=== PATIENT | female | born 1945 | race Caucasian/White ===

== ENCOUNTER 2016-12-13 02:05 | Inpatient (IN) ==
--- NOTE | 2016-12-13 02:57 | Emergency Department Note ---
I, Ayah Kaur, am scribing for, and in the presence of, Cecelia Hu DO 02: 49. I, Cecelia Hu DO, personally performed the services described in this documentation, ascribed by Ayah Kaur in my presence, and it is both accurate and complete . Arrival - Arrival Chief Complaint: Chest Pain Stated Complaint: chest pain ED Nursing Triage Note: C/C left sided chest pain under breast, squeezing/sharp in nature, shortness of breath. Went to ER 12/10/16 at [facility] ER was worked up by Dr Solo. Went to Dr Diaz 12/12 was worked up. Has appt with Dr Alonzo for chest pain. Mode of Arrival: Stretcher Limitations: No Limitations Source: Patient Time Seen by Provider: 12/13/16 02:16 - History of Present Illness HPI Narrative: Pt is a 71 y/o female that was brought to the ED via EMS with c/o left sided chest pain that began 4 days ago. Pt states the pain is like a squeezing pain. She denies N/V. She states she went to the ER 4 days ago and was worked up by Dr. Solo, he wanted to have her see the motor winder at the hospital but she declined due to weather conditions. Pt states she went back to her PCP Dr. Diaz yesterday and he did a work up, prescribed her 2 medications one for her heart and one for her blood pressure, and tried getting her in with a motor winder yesterday but was unable to. She has an appointment today at 1: 15pm with Dr. Alonzo for chest pain. Pt states she is here because she was "hurting so bad." Pt admits she is a smoker. No other complaints/pain in ED. Onset (ago): day(s) Consistency: constant Severity: mild Severity scale (1-10): 2 Quality: other Allergies/Adverse Reactions: Allergies Allergy/AdvReac Type Severity Reaction Status Date / Time Penicillins Allergy RASH Verified 12/13/16 02:22 Sulfa (Sulfonamide Allergy RASH Verified 12/13/16 02:22 Antibiotics) Home Medications: Home Medications Medication Instructions Recorded Confirmed Type Colchicine [Colcrys] 0.6 mg PO DAILY PRN 08/20/15 12/13/16 History Pantoprazole Tab [Protonix Tab] 40 mg PO DAILY #30 tablet 08/21/15 12/13/16 Rx traMADol TAB [Ultram] 50 mg PO Q6H PRN #30 tablet 08/21/15 12/13/16 Rx Amlodipine Besylate 10 mg PO DAILY 12/13/16 12/13/16 History Review of System - Review of System 12 point system: reviewed and no additional remarkable complaints except as stated - Review of System Constitutional: Absent: fever Respiratory: Absent: cough Cardiovascular: Present: chest pain (left sided chest pain) Gastrointestinal: Absent: nausea, vomiting Musculoskeletal: Absent: arm pain, back pain, leg pain, neck pain Skin: Absent: rash Neurological: Absent: headache, numbness, confusion Psychiatric: Absent: anxiety Medical,Surgical,& Family Hx - Medical History Cardio: History of: Hypertension Neurology: History of: 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) No history of: Seizures HEENT: History of: Ear Problem (hard of hearing) Rheumatology: History of;: Gout Musculoskeletal: History of: Degenerative Disk Disease (and gout), Musculoskeletal Problems (Gout) - Surgical History HEENT Surgeries: Surgical HX of: Tonsilectomy & Adenoidectomy Abdominal Surgeries: Surgical HX of: Appendectomy Reproductive Surgeries: Surgical HX of;: Section, Hysterectomy Orthopedic Surgeries: Surgical HX of;: Orthopedic Surgery (knee) - Family History Family History: Reports;: Family Cancer, Family Diabetes, Family Heart Disease - Social History Smoking Status: Current every day smoker Frequency of Alcohol Use: None Type of Drug Use: None Exam Vital Signs: Vital Signs Temperature 98.1 F 12/13/16 02:06 Pulse Rate 78 12/13/16 02:06 Respiratory Rate 20 12/13/16 03:00 Blood Pressure 167/90 12/13/16 02:06 O2 Sat by Pulse Oximetry 97 12/13/16 02:06 - General General appearance: alert, in no apparent distress - Head Head exam: Present: atraumatic, normocephalic - Eye Eye exam: Present: PERRL, EOMI - ENT ENT exam: Present: mucous membranes moist. Absent: mucous membranes dry - Neck Neck exam: Present: full ROM. Absent: tenderness - Chest Chest inspection: Present: symmetric chest wall rise. Absent: tenderness - Respiratory Respiratory exam: Present: normal lung sounds bilaterally. Absent: respiratory distress - Cardiovascular Cardiovascular exam: Present: regular rate, normal rhythm, normal heart sounds - Abdominal Exam Abdominal exam: Present: soft. Absent: tenderness - Extremities Exam Extremities exam: Present: full ROM. Absent: tenderness - Back Exam Back exam: Present: full ROM. Absent: tenderness - Neurological Exam Neurological exam: Present: alert, oriented X3, CN II-XII intact. Absent: motor sensory deficit - Psychiatric Psychiatric exam: Present: normal affect, normal mood - Skin Skin exam: Present: warm, dry Course Course Narrative: spoke with Dr Buenrostro who will admit pt Results - Labs CBC & BMP: 12/13/16 03:21 12/13/16 03:21 Lab Results: I have reviewed the patients labs Labs: Laboratory Tests 12/13/16 03:21 Neut # (Auto) 9.0 H [place] # (Auto) 1.2 H Laboratory Tests 12/13/16 03:21 Chloride 108 H BUN 28 H Creatinine 1.20 H BUN/Creatinine Ratio 23.00 H Troponin I 0.124 H Albumin 3.0 L Globulin 3.9 H Albumin/Globulin Ratio 0.7 L - EKG EKG results: interpreted by SUE, no acute changes - Diagnostic Findings Procedure: Chest x-ray: image reviewed by me (no acute process) Disposition Clinical Impression: Chest pain Case discussed with: patient Disposition: Still a Patient Condition: Stable Time of Disposition: 04:33
[2016-12-13] MEDS ORDERED: NITROGLYCERIN SL 0.4 MG TABLET SL STA (03:00)
[2016-12-13] MEDS ORDERED: ASPIRIN 325 MG TABLET PO STA ×2 (03:00→04:45)
[2016-12-13] MEDS ORDERED: ASPIRIN 325 MG TABLET ONE (03:12)
[2016-12-13] MEDS ORDERED: NITROGLYCERIN SL 0.4 MG TABLET SL ONE (03:12)
[2016-12-13 03:33] LABS: Basophils # 0.1 10*3/uL (0.0-0.2); Basophils % 0.7 % (0.0-0.8); Hematocrit 39.5 VOL% (35.7-47.0); Hemoglobin 12.8 GM/DL (12.0-16.0); Immature Granulocytes % 0.4 %; Immature Granulocytes Absolute 0.05 #; Lymphocytes # 3.3 10*3/uL (1.4-4.0); Lymphocytes % 24.4 % (21.3-54.2); Mean Corpuscular HGB Conc 32.4 GM/DL (32-36); Mean Corpuscular Hemoglobin 32 PG (27-34); Mean Corpuscular Volume 99.2 FL (87-102); Mean Platelet Volume 9.8 FL (9.6-12.0); Monocytes # 1.2 10*3/uL (0.11-0.8); Monocytes % 8.4 % (1.7-12.7); Neutrophils % 66.1 % (38.7-73.9); Platelet Count 273 10*3/uL (130-400); Red Blood Count 3.98 10*6/uL (3.8-5.5); Red Cell Distribution Width 13.1 % (9.3-17.3); White Blood Count 13.7 10*3/uL (4.5-13.71)
[2016-12-13 03:44] LABS: INR 0.9; PT Patient Result 9.7 SECS; Partial Thromboplastin Time 30.6 SECS (0-40)
[2016-12-13 04:11] LABS: Alanine Aminotransferase 13 U/L (13-56); Alkaline Phosphatase 85 U/L (45-117); Aspartate Amino Transferase 11 U/L (0-37); Blood Urea Nitrogen 28 MG/DL (7-18); Calcium 8.7 MG/DL (8.5-10.1); Glucose 92 MG/DL (74-106); Osmolality,Calculated 291.8 MOS/KG (273-304); Sodium 144 MMOL/L (136-145); Total Protein 6.9 G/DL (6.4-8.3)
[2016-12-13 04:14] LABS: Troponin I Only 0.124 NG/ML (0.00-0.045)
[2016-12-13] MEDS ORDERED: METOPROLOL TARTRATE 5 MG/5 ML VIAL IV STA (04:24)
[2016-12-13] MEDS ORDERED: METOPROLOL TARTRATE 5 MG/5 ML VIAL IV ONE (04:25)
[2016-12-13] MEDS ORDERED: MAGNESIUM SULF RIDER 4 GM in PREMIX 1 EACH IV PRN (04:45)
[2016-12-13] MEDS ORDERED: MAGNESIUM SULF RIDER 2 GM in PREMIX 1 EACH IV PRN (04:45)
[2016-12-13] MEDS ORDERED: ONDANSETRON 4 MG/2 ML VIAL ONE (04:59)
[2016-12-13] MEDS ORDERED: MORPHINE 2 MG/1 ML SYRINGE ONE (04:59)
[2016-12-13] MEDS ORDERED: MORPHINE 2 MG/1 ML SYRINGE IV ONE (05:03)
[2016-12-13] MEDS ORDERED: ONDANSETRON 4 MG/2 ML VIAL IV ONE (05:03)
[2016-12-13] MEDS ORDERED: KETOROLAC 30 MG/1 ML VIAL ONE (05:07)
[2016-12-13] MEDS ORDERED: KETOROLAC 30 MG/1 ML VIAL IV ONE ×2 (05:11→06:33)
--- NOTE | 2016-12-13 06:47 | XRay Report ---
Portable chest. Indication: Chest pain. Comparison: August 20, 2015. The heart is enlarged. There is uncoiling of the thoracic aorta which often indicates chronic hypertension. The pulmonary vasculature is normal. There is mild atelectasis at the left lung base. No consolidation, pneumothorax, or pleural effusion. Calcified plaque is seen over both carotids. Degenerative changes are noted within the spinal column and shoulders. Impression: Cardiomegaly. Left basilar atelectasis. PROCEDURE INTERPRETED AT [facility] DEPARTMENT OF RADIOLOGY Final Report Signed by: Dr. Yoli Whaley
[2016-12-13] MEDS: SODIUM CHLORIDE 0.9% 1,000 ML IV SCH ×3 (07:10→21:28)
[2016-12-13 07:25] LABS: Troponin I Only 0.144 NG/ML (0.00-0.045)
--- NOTE | 2016-12-13 07:48 | EKG Report ---
Stationary ECG Study [facility] Test Date: 12/13/2016 7:46:58 AM Pat Name: DIEGO JACOME Department: Room: 275 Gender: F Back Hand: ALBERTO : 1945 Requested by: Cecelia Hu Order Number: [id number] Sage MD: DICKSON WILLIS Intervals [place] Rate: 66 P: 59 ME: 165 QRS: 10 QRSD: 84 T: 48 QT: 417 QTc: 430 Interpretive Statements SINUS RHYTHM LEFT VENTRICULAR HYPERTROPHY AND ST-T CHANGE Electronically Signed On 12-15-16 09:36:26 ASSOCIATE PROFESSOR OF LIBRARY MEDIA by DICKSON WILLIS [email or web address]
--- NOTE | 2016-12-13 07:53 | EKG Report ---
Stationary ECG Study [facility] ER Test Date: 12/13/2016 2:12:20 AM Pat Name: DIEGO JACOME Department: Room: 275 Gender: F Landscape Contractor: : 1945 Requested by: Cecelia Hu Order Number: [id number] Sage MD: DICKSON WILLIS Intervals [place] Rate: 85 P: 36 MD: 149 QRS: -11 QRSD: 85 T: 134 QT: 364 QTc: 407 Interpretive Statements SINUS RHYTHM LEFT VENTRICULAR HYPERTROPHY AND ST-T CHANGE Electronically Signed On 12-15-16 09:34:22 BUSINESS FUNCTIONAL ANALYST by DICKSON WILLIS [email or web address]
[2016-12-13 08:35] LABS: Troponin I Only 0.139 NG/ML (0.00-0.045)
--- NOTE | 2016-12-13 10:56 | CT Report ---
EXAM: CT chest PE study DATE: December 13, 2016 COMPARISON: None REASON: Shortness of breath, painful inspiration TECHNIQUE: Axial images of the chest were obtained after administration of 80 cc of Omnipaque 350 intravenous contrast. Coronal and sagittal reformatted images were also acquired. The study was performed per pulmonary embolism protocol. Total DLP was 214.9 mGy*cm. FINDINGS: Pulmonary arteries: Evaluation of the segmental and subsegmental pulmonary arteries is difficult in some regions, especially at the right lower lobe where there is motion artifact. However, no convincing pulmonary embolism is identified. Vascular/heart: The descending thoracic aorta is upper normal in size, measuring 3.3 cm in diameter. Evaluation for dissection at the thoracic aorta is limited by poor opacification, but no obvious dissection is seen. There is moderate scattered calcified plaque at the arteries, including at the coronary arteries. There is cardiomegaly, but no pericardial effusion is seen. Lymph nodes: Calcified mediastinal and hilar lymph nodes are present, but no suspicious adenopathy is seen at the chest. Other mediastinum/lower neck: There is a 1.9 cm hypodensity at the right thyroid lobe, likely representing a nodule. Chest wall: Unremarkable. Lungs: There are a few calcified granulomas within the left lung and minimal scattered atelectasis within both lungs. There is also minimal emphysema. No pneumothorax or pleural effusion is identified. A 1 cm groundglass opacity is seen within the posterior aspect of the right lower lobe on image 68. This could represent atelectasis or a minimal small airway infectious/inflammatory process. However, followup is recommended to confirm benignity. There is also nonspecific 0.5 cm noncalcified nodule within the lower posterior aspect of the right upper lobe on image 50. This could be followed at the same time as the right lower lobe opacity. Bones: There is multilevel mild to moderate degenerative change at the thoracic spine and upper lumbar spine. There is also mild scoliosis. No acute osseous process is seen. Upper abdomen: There is a 2.7 cm left adrenal nodule and 1.8 cm right adrenal nodule. They both demonstrated -30 Hounsfield units and are most consistent with adrenal adenomas. No acute process is seen within the upper abdomen. IMPRESSION: 1. Evaluation of the pulmonary arteries at the right lower lobe is limited by motion artifact. However, no convincing pulmonary emboli are identified. 2. There is a 1 cm groundglass opacity within the right lower lobe, which could represent atelectasis or a small airway infectious/inflammatory process. There is also a nonspecific 0.5 cm noncalcified nodule within the lower posterior aspect of the right upper lobe. Followup is recommended to confirm benignity. 3. Minimal scattered atelectasis within both lungs and minimal emphysema. 4. Cardiomegaly. 5. Bilateral adrenal nodules, measuring up to 2.7 cm on the left. They are most consistent with adrenal adenomas. 6. Nonspecific right thyroid nodule. Further evaluation could be performed with ultrasound. PROCEDURE INTERPRETED AT [facility] DEPARTMENT OF RADIOLOGY Final Report Signed by: Dr. Yon Goins
[2016-12-13] MEDS: ALBUTEROL/IPRATROPIUM 3 ML NEB RESP TX SCH ×3 (11:02→20:23)
[2016-12-13] MEDS ORDERED: REGADENOSON 0.4 MG/5 ML SYRINGE IV ONE (11:50)
[2016-12-13] MEDS: ACETAMINOPHEN 500 MG TABLET PO PRN (12:49)
[2016-12-13 13:23] LABS: Troponin I Only 0.132 NG/ML (0.00-0.045)
--- NOTE | 2016-12-13 13:40 | XRay Report ---
Referring Physician: Kimberly Livingston Exam: XR bilateral rib x-rays with PA chest view Date: December 13, 2016 at 9:52 AM Reason: Rib/chest wall pain, anterior/posterior pain Comparison: Chest one view portable December 13, 2016 Findings: The cardiac silhouette is again enlarged, and the thoracic aorta is tortuous with scattered calcified plaque. There are a few calcified mediastinal and hilar lymph nodes. No focal consolidation, pneumothorax or pleural effusion is identified. There is multilevel degenerative change at the spine as well as mild thoracolumbar scoliosis. Surgical clips are noted at the lower neck. No acute osseous process is identified. Specifically, no acute rib fracture is seen. Impression: 1. Cardiomegaly. 2. No acute rib fracture is identified. If there is a high clinical concern for a rib fracture, further evaluation could be performed with a bone scan. PROCEDURE INTERPRETED AT [facility] DEPARTMENT OF RADIOLOGY Final Report Signed by: Dr. Yon Goins
--- NOTE | 2016-12-13 14:02 | Ultrasound Report ---
Referring physician: Kimberly Livingston Exam: Carotid ultrasound Date: December 13, 2016 Comparison: None Reason: Bruit Technique: Duplex scan of the carotid arteries performed using B-Mode/grayscale imaging and Doppler spectral analysis and color flow. Ultrasound images were captured and stored. Findings: There is partially calcified plaque at the common carotid arteries, carotid bifurcations, proximal cervical ICAs and external carotid arteries bilaterally. This is especially prominent at the proximal right ICA. The right ICA measures 0.23 cm in diameter, and the left ICA measures 0.43 cm in diameter. The peak systolic velocities are as follows: Right CCA: 88 cm/s Right proximal ICA: 145 cm/s Right distal ICA: 174 cm/s Right ECA: 135 cm/s Left CCA: 58 cm/s Left proximal ICA: 98 cm/s Left distal ICA: 74 cm/s Left ECA: 105 cm/s The peak systolic ICA/CCA velocity ratios are as follows: 2.0 on the right and 1.7 on the left. Antegrade flow is present within both vertebral arteries. Impression: 1. 50-69% stenosis of the proximal right ICA. 2. Less than 50% stenosis of the left cervical ICA. 3. The Society of Radiologists in Ultrasound consensus conference criteria was used. The Ultrasound images were captured and stored. PROCEDURE INTERPRETED AT [facility] DEPARTMENT OF RADIOLOGY Final Report Signed by: Dr. Yon Goins
[2016-12-13] MEDS ORDERED: COLCHICINE 0.6 MG TABLET PO PRN (16:01)
[2016-12-13] MEDS ORDERED: traMADol 50 MG TABLET PO PRN (16:01)
[2016-12-13] MEDS ORDERED: KETOROLAC 30 MG/1 ML VIAL IV PRN (16:02)
--- NOTE | 2016-12-13 16:50 | Nuclear Medicine Report ---
NUCLEAR STRESS TEST DATE: 12/13/2016 REFERRING PHYSICIAN: Kimberly Livingston MD INTERPRETING PHYSICIAN: Kimberly Livingston MD INDICATION: A 71-year-old female with atypical chest discomfort, intermediate risk of coronary jayy ry disease. PROCEDURE: The patient underwent Lexiscan Cardiolite per protocol. The patient received 10 mCi Anderson hnetium-99 for rest imaging. Subsequently, the patient was initially exercised per Cordell protocol a nd achieved 2.4 METS on the treadmill. Due to gait instability and inability to achieve target hear t rate, she was transitioned to Lexiscan protocol. She received 0.4 mg of Lexiscan. This was follo wed by 30 mCi Technetium-99 for stress imaging. EKG interpretation is supervised and interpreted by practitioner Raciel, and reviewed by me. The jonathan caal did not have any chest pain, ST changes or arrhythmia. SPECT images were obtained in the short axis, horizontal, and vertical long axes with gating. Eject ion fraction is 58%. End-diastolic volume 105 mL, end-systolic volume 44 mL, stroke volume is 60 mL . Overall thickening and wall motion is within normal limits. At rest, there was a very small exte nt, moderate intensity perfusion defect at the apex. With stress imaging, the preexisting apical de fect is unchanged and no new radiotracer defects develop. Diaphragmatic attenuation is noted and co rresponds with the apical defect. IMPRESSION: 1. POOR EXERCISE TOLERANCE. 2. NORMAL LEFT VENTRICULAR SYSTOLIC FUNCTION. 3. SMALL EXTENT, MODERATE INTENSITY FIXED APICAL PERFUSION DEFECT THAT IS THOUGHT TO BE SECONDARY T O DIAPHRAGMATIC ATTENUATION OR COULD REPRESENT A VERY SMALL AREA OF PRIOR MYOCARDIAL INFARCTION. CLINICAL CORRELATION IS RECOMMENDED. 4. NO GROSS NUCLEAR EVIDENCE OF REVERSIBLE ISCHEMIA. Procedure performed and interpreted at [facility] Department of Radiology.
--- NOTE | 2016-12-13 20:16 | Cardiology History & Physical ---
Raul Larose Lauren, RN, am scribing for, and in the presence of, Kimberly Livingston MD 20:15. Assessment and Plan - Time spent with patient Time spent with patient: Greater than 30 minutes (1) Chest pain Status: Acute Assessment and plan: In general, she has a variable amount of chest pains. Some of this has a pleuritic component, some has a reproducible component. There is also epigastric discomfort, and potentially an exertional component. We will obtain an echocardiogram today and set her up from nuclear stress testing. This could be cardiac pain but we will also check rib series xrays, D-Dimer, and CT chest PE protocol. Current Visit: Yes (2) Left-sided chest wall pain Status: Acute Assessment and plan: She is very tender to palpation along her left-sided chest wall beneath the left breast extending around her posterior thoracic region. She also has painful inspiration. We will obtain a rib series x-ray, check a d-dimer, and obtain a CT of the chest with PE protocol. Current Visit: Yes (3) Elevated troponin Status: Acute Assessment and plan: 3 sets of troponins have been obtained. First troponin 0.124, second troponin 0.144, third troponin 0.139. We will schedule her for a nuclear stress test later on today to evaluate for cardiac disease. Current Visit: No (4) Hypertension Status: Acute Assessment and plan: Elevated on admission but presently well controlled. Continue with current medications. Current Visit: Yes (5) Decreased hearing of both ears Status: Acute Assessment and plan: Reports onset September 2016 when she awoke from sleep and could not here. Upon arrival to the emergency room her blood pressure was 260/140. Since that time she has had no hearing in her right ear and only 30% hearing in her left ear. Current Visit: Yes (6) Tobacco use Status: Acute Assessment and plan: She has smoked half a pack per day since the 1960s. Current Visit: Yes (7) Elevated serum creatinine Status: Acute Assessment and plan: Currently 1.2. Current Visit: No History of Present Illness Chief complaint: chest pain History of present illness: Ms. Schultz is a 71 year old female who has never seen a managed care analyst before. She did have an appointment to see Dr. Alonzo at [facility] today at 1:15 PM. She has a history of hypertension, gout, degenerative disc disease, prior GI bleed in August 2015, hard of hearing. She has risk factors significant for: Tobacco use, sedentary lifestyle, age, hypertension. According to her records she has a prior history of GI bleed with anemia related to NSAIDs back in August 2015. At that time she did have an elevated troponin. She is occurring every day smoker and has smoked about a half a pack a day since the 1960s. She reports having been in her usual state of health until last week when she began having twinges of chest pain. She reports these only last a few seconds. Monday she presented to the [facility] emergency room complaining of unbearable right sided chest pain with numbness in her right hand. She reports this pain was constant and was mildly improved with a shot of pain medication. She tells me that the emergency room physician wanted to transfer her to our facility at that time for evaluation by managed care analyst but she refused due to the bad weather conditions. Monday morning she went to see her primary care physician Dr. Diaz. At this time the pain has been moving into her left chest. She reports the pain was underneath her left breast and mid upper abdomen. She reports this pain is sharp and squeezing quality with some associated diaphoresis. She tells me now that this pain feels like a deep soreness. She does have some considerable tenderness to palpation beneath her left breast along her rib cage extending around to her back. She reports this is not exactly the same pain that she has been having. She denies associated shortness of breath but does report pain upon inspiration. She denies any associated nausea, vomiting, dizziness, lightheadedness, syncope. She reports she generally does not have any dyspnea on exertion or chest discomfort on exertion. She does have some significant hearing loss. She tells me she had been off of her blood pressure medications back in September when she woke up one morning and could not hear. She reports presenting to the emergency room and her blood pressure was 260/140. She reports she has had some residual hearing loss ever since and cannot hear anything out of her right ear and only has about 30% of her hearing in her left ear. Currently her H&H is stable. Creatinine is 1.20. First troponin was 0.124, second troponin 0.144, third troponin 0.139. EKG shows sinus rhythm with minimal ST depression in lead [address] changes. I do hear a left- sided carotid bruit. We will check bilateral carotid ultrasound. We will also obtain rib series x-rays, d-dimer, and CT of the chest PE protocol. We will obtain an echocardiogram and schedule her for a nuclear stress test sometime today. Home Medications Medication Instructions Recorded Confirmed Type Colchicine [Colcrys] 0.6 mg PO DAILY PRN 08/20/15 12/13/16 History Pantoprazole Tab [Protonix Tab] 40 mg PO DAILY #30 tablet 08/21/15 12/13/16 Rx traMADol TAB [Ultram] 50 mg PO Q6H PRN #30 tablet 08/21/15 12/13/16 Rx Amlodipine Besylate 10 mg PO DAILY 12/13/16 12/13/16 History Allergies Allergy/AdvReac Type Severity Reaction Status Date / Time morphine Allergy Hallucinati Verified 12/13/16 05:12 ng Penicillins Allergy RASH Verified 12/13/16 02:22 Sulfa (Sulfonamide Allergy RASH Verified 12/13/16 02:22 Antibiotics) - Constitutional Constitutional: Present: excessive sweating. Absent: anorexia, chills, daytime sleepiness, fatigue, fever(s), frequent falls, headache(s), increased appetite, lethargy, malaise, night sweats, stops breathing during sleep, weakness, weight gain, weight loss - EENT Eyes: Absent: blurry vision, diplopia, loss of vision Ears: Present: decreased hearing. Absent: ear discharge, ear pain Nose, mouth and throat: Absent: dysphagia, epistaxis, headache(s), hoarseness, lip swelling, nasal congestion, neck mass, neck pain, sinus pressure, sore throat, throat swelling, tongue swelling, vertigo - Cardiovascular Cardiovascular: Present: as per HPI, chest pain at rest, radiating jaw, neck or arm pain (right arm pain). Absent: chest pain with activity, claudication, diaphoresis, dyspnea, dyspnea on exertion, edema, lightheadedness, orthopnea, palpitations, PND - Respiratory Respiratory: Present: as per HPI, pain on inspiration. Absent: cough, dyspnea, hemoptysis, dyspnea on exertion, snoring - Gastrointestinal Gastrointestinal: Present: abdominal pain (mid uppper abdomen). Absent: bloating, change in bowel habits, constipation, cramping, diarrhea, dysphagia, heartburn, hematemesis, hematochezia, melena, nausea, vomiting - Genitourinary Genitourinary: Absent: difficulty urinating, dysuria, flank pain, urinary frequency, urinary hesitancy, urinary incontinence - Musculoskeletal Musculoskeletal: Present: back pain (left sided thoracic back pain). Absent: arthralgias, joint swelling, limited range of motion, muscle cramps, muscle weakness, myalgias - Neurological Neurological: Present: numbness (in right arm monday). Absent: abnormal gait , abnormal speech, behavioral changes, confusion, convulsions, disequilibrium, dizziness, focal weakness, frequent falls, headache(s), memory loss, paresthesias, radicular pain, syncope, tremor(s) - Psychiatric Psychiatric: Absent: anxiety, confusion, depression, difficulty concentrating, memory loss, panic attacks - Endocrine Endocrine: Absent: cold intolerance, fatigue, heat intolerance, polydipsia, polyphagia - Hematologic/Lymphatic Hematologic/Lymphatic: Absent: easy bleeding, easy bruising, lymphadenopathy Medical,Surgical,& Family Hx - Medical History Cardio: History of: Hypertension Neurology: History of: 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) No history of: Seizures HEENT: History of: Ear Problem (hard of hearing) Rheumatology: History of;: Gout Musculoskeletal: History of: Degenerative Disk Disease (and gout), Musculoskeletal Problems (Gout) - Surgical History HEENT Surgeries: Surgical HX of: Tonsilectomy & Adenoidectomy Abdominal Surgeries: Surgical HX of: Appendectomy Reproductive Surgeries: Surgical HX of;: Section, Hysterectomy Orthopedic Surgeries: Surgical HX of;: Orthopedic Surgery (knee) - Family History Family History: Reports;: Family Cancer, Family Diabetes, Family Heart Disease - Social History Smoking Status: Current every day smoker Frequency of Alcohol Use: None Type of Drug Use: None Cardiology Physical Exam - Constitutional Vitals: Vital Signs Temp Pulse Resp BP Pulse Ox 98 F 66 20 132/68 92 L 12/13/16 08:00 12/13/16 08:00 12/13/16 09:18 12/13/16 08:00 12/13/16 08:00 Intake and Output 12/12/16 12/13/16 12/13/16 22:59 06:59 14:59 Other: Voiding Method Toilet # Voids 1 Weight 139 lb 9 oz General appearance: normal weight, no acute distress - Head Head exam: Present: normal inspection, normocephalic, atraumatic - Eye Eye exam: Absent: conjunctival injection, periorbital swelling, scleral icterus , laceration to eyelids Pupils: Present: GENA. Absent: dilated - ENT ENT exam: Present: normal exam, normal external ear exam - Neck Neck exam: Present: normal inspection. Absent: tenderness - Respiratory Respiratory exam: Present: chest wall tenderness, rhonchi, wheezes (scattered). Absent: accessory muscle use - Cardiovascular Cardiovascular exam: Present: carotid bruit (left sided), regular rate and rhythm. Absent: diastolic murmur, systolic murmur - GI/Abdominal GI/Abdominal exam: Present: normal bowel sounds, tenderness (to mid upper abdomen and left upper quadrant), soft. Absent: distended, mass - Extremities Exam Extremities exam: Present: normal inspection, calf tenderness, other (2+ PT pulses bilaterally). Absent: edema - Back Exam Back exam: Present: normal inspection, other (tenderness to posterior thorax left side). Absent: vertebral tenderness - Neurological Exam Neurological exam: Present: alert, oriented X3, other (grossly intact, no resting or essential tremor.) - Psychiatric Psychiatric exam: Present: normal affect, normal mood - Skin Skin exam: Present: normal color, warm, dry. Absent: cyanosis Result/EKG - Labs CBC & BMP: 12/13/16 03:21 12/13/16 03:21 Lab Results: I have reviewed the past 24 hour labs Labs: Laboratory Results - last 24 hr 12/13/16 12/13/16 06:35 07:57 Total Creatine Kinase 82 80 CK-MB (CK-2) 1.8 1.5 Troponin I 0.144 H 0.139 H - Diagnostic Findings Procedure: Chest x-ray: report reviewed by me - EKG EKG results: interpreted by me, sinus rhythm (with mild ST depression in lead [address] changes.) I, Kimberly Livingston MD, personally performed the services described in this documentation, ascribed by Sadaf Carter RN in my presence, and it is both accurate and complete .
--- NOTE | 2016-12-13 21:24 | ECHO Report ---
Tara Schultz Exam Date: 12/13/2016 10:46 Referring Physician: Technologist: Genie Millan RDCS Age: 71 Ht (in): Wt (lb): Gender: F Exam Location: [facility] Echo Indications: Chest pain, unspecified, Essential (primary) hypertension, Nicotine dependence, unspecified, uncomplicated BP: / HR: Rhythm: Sinus Technical Quality: Good IMPRESSIONS Normal LV systolic function, ejection fraction 55%. Grade 1/4 diastolic dysfunction (impaired relaxation). Mild biatrial enlargement. Moderate concentric left ventricular hypertrophy. Mild mitral and tricuspid regurgitation. Aortic sclerosis without stenosis. Mild pulmonary hypertension, pulmonary artery pressure estimated at 43 mmHg. MEASUREMENTS (Male / Female) Normal Values 2D ECHO LV Diastolic Diameter PLAX 4.4 cm 4.2 - 5.9 / 3.9 - 5.3 cm LV Systolic Diameter PLAX 2.8 cm LV Fractional Shortening PLAX 36.4 % IVS Diastolic Thickness 1.8 cm 0.6 - 1.0 / 0.6 - 0.9 cm LVPW Diastolic Thickness 1.9 cm 0.6 - 1.0 / 0.6 - 0.9 cm RV Internal Dim ED PLAX 2.5 cm Aortic Root Diameter 2.9 cm LA Systolic Diameter LX 4.1 cm 3.0 - 4.0 / 2.7 - 3.8 cm DOPPLER TR Peak Velocity 289.0 cm/s TR Peak Gradient 33.4 mmHg FINDINGS Left Ventricle Normal left ventricular cavity size. Moderate left ventricular hypertrophy. Left ventricular ejection fraction is estimated at 55 %. Right Ventricle The right ventricle is normal in size and function. Right Atrium Mildly increased right atrial size. Left Atrium Mildly increased left atrial size. Mitral Valve Mildly thickened mitral valve with mild mitral regurgitation. Aortic Valve Aortic valve sclerosis without stenosis or regurgitation. Tricuspid Valve Morphologically normal tricuspid valve. Trace to mild tricuspid valve regurgitation. Tricuspid regurgitation velocities suggest a PAP of 43 mmHg. Pulmonic Valve Morphologically normal pulmonic valve without significant stenosis. There is no pulmonic regurgitation. Pericardium Normal pericardium without effusion. Aorta Normal ascending aorta dimension. Kimberly Livingston MD (Electronically Signed) Final Date: 13 December 2016 21:23
[2016-12-14] MEDS: ACETAMINOPHEN 500 MG TABLET PO PRN (01:02)
[2016-12-14] MEDS: ALBUTEROL/IPRATROPIUM 3 ML NEB RESP TX SCH ×2 (08:24→11:23)
--- NOTE | 2016-12-14 08:36 | EKG Report ---
Stationary ECG Study [facility] Test Date: 12/14/2016 8:36:08 AM Pat Name: DIEGO JACOME Department: Room: 275 Gender: F Master Craftsman: ALEBRTO : 1945 Requested by: Cecelia Hu Order Number: [id number] Sage MD: DICKSON WILLIS Intervals [place] Rate: 72 P: 72 AK: 158 QRS: 29 QRSD: 84 T: 133 QT: 424 QTc: 448 Interpretive Statements SINUS RHYTHM WITH SINUS ARRHYTHMIA LEFT VENTRICULAR HYPERTROPHY AND ST-T CHANGE Electronically Signed On 12-15-16 09:50:06 EDUCATION LIAISON by DICKSON WILLIS [email or web address]
[2016-12-14] MEDS ORDERED: amLODIPine 10 MG TABLET PO SCH (09:00)
[2016-12-14] MEDS ORDERED: PANTOPRAZOLE 40 MG TABLET PO SCH (09:00)
--- NOTE | 2016-12-14 12:13 | Discharge Summary ---
Hospital Course - Hospital Course Hospital Course: Ms. Schultz is a 71 year old female who has never seen a sail maker before. She has risk factors significant for: tobacco use, sedentary lifestyle , age, hypertension. History of prior GI bleed in August 2015 due to NSAID use. Patient presented to the emergency department for complaints of chest pain. Her cardiac biomarkers were noted to be 0.124 to 0. 144. EKG revealed nonspecific ST changes. Patient underwent elective stress test which revealed no evidence of reversible ischemia. It is felt that her pain is musculoskeletal in nature. She did have a carotid bruit and an ultrasound was performed which revealed 50- 69% right internal carotid artery stenosis, left internal carotid artery stenosis less than 50%. Echocardiogram revealed EF 55% without significant valvular abnormality. CT of the chest revealed no PE. Of note was a 1 cm groundglass opacity within the right lower lobe which could represent atelectasis or small infectious inflammatory process. There is also nonspecific 0.5 cm noncalcified nodule with the lower posterior aspect of the right upper lobe. We will have her follow-up with her primary care provider, Dr. Diaz in [place], for follow-up CT to confirm benignity. (See report for further information). Thyroid nodule noted on CT may need further work-up and we will defer this to Dr. Diaz's discretion. At discharge, patient will resume her preadmission medications. She is also being given a consultation with Dr. Speedy Lopes, Pain Specialist, to treat her non-cardiac chest pain. She will be given a biref trial of Celebrex for her pain as she has history of GI Bleed due to NSAID use. She is also being given Oliver and Prilosec. F/U Dr. Livingston in one month. (Handwritten Rx given as there is no pharmacy listed in computer and therefor unable to transmit electronically.) - Time spent with patient Time with patient DS: Less than 30 minutes Diagnosis - Discharge Diagnosis (1) Elevated troponin Status: Resolved (2) Chest pain Status: Chronic (3) Hypertension Status: Chronic (4) Tobacco use Status: Chronic (5) Left-sided chest wall pain Status: Chronic Discharge Plan - Discharge Data Disposition: Disch To Home/Self Care Condition at Discharge: Stable Discharge Diet: advance to your usual diet Activity: resume usual activities as tolerated Hygiene: no restrictions Weight Bearing at Discharge: full weight bearing Driving: no restrictions Contact your physician if you experience:: fever over 101, Difficulty voiding, Redness or swelling, Nausea/Vomiting, Shortness of breath, Bleeding, pain uncontrolled by pain medications - Discharge Medications New Celecoxib [Celebrex] 200 mg PO BID #10 capsule HYDROcodone/ACETAMIN 7.5-325 [Oliver 7.5-325] 1 tablet PO Q4H #30 tablet Continue Colchicine [Colcrys] 0.6 mg PO DAILY PRN PRN Reason: Gout Pantoprazole Tab [Protonix Tab] 40 mg PO DAILY #30 tablet traMADol TAB [Ultram] 50 mg PO Q6H PRN #30 tablet PRN Reason: Pain Amlodipine Besylate 10 mg PO DAILY - Follow Up or Referral Follow Up: Kimberly Livingston MD [Physician] - 1 Month Han Diaz MD [Physician] - 1 Week (Please send copy of Chest CT to appointment) Will Lopes M.D. [PROVISIONAL] - (1-2 weeks RE: non-cardiac chest pain ) - Forms/Instructions Exam - Constitutional Vitals: Period Temp Pulse Resp BP Sys/Johnson Pulse Ox Last 24 Hr 96.6 F-98.5 F 60-92 16-20 125-185/70-78 91-99 Exam: General: Appears well with no apparent distress. Pleasant and cooperative. Appears comfortable. HEENT: PERRL, normocephalic, atraumatic. Mucous membranes moist. No jaundice noted. Conjunctiva moist and clear, sclerae anicteric Neck: No JVD/HJR, no thyromegaly or lymphadenopathy noted. Right carotid bruit. Cardiac: Regular rate and rhythm. No murmur rub or gallop. Lungs: Clear to auscultation without accessory muscle use to assist the respiratory pattern. Not requiring oxygen. Abdomen: Soft, bowel sounds normoactive. Nontender and nondistended. No abdominal bruit or thrill noted. No masses noted. Musculoskeletal: No fluid collection. Decreased range of motion is noted. Extremities: No clubbing, cyanosis noted. No edema noted. Upper extremity pulses 2+. Lower extremity pulses 2+. Capillary refill less than 3 seconds. Skin: No unusual lesions or rashes. No skin breakdown appreciated. Neuro: Awake, alert and oriented 3. Moves all extremities well without hemiparesis or paralysis. No essential tremor is appreciated. Discharge Results Labs on day of discharge: Labs from last 24 hours 12/13/16 12:31 Total Creatine Kinase 91 CK-MB (CK-2) 1.9 Troponin I 0.132 H DS: Provider Date of admission: 12/13/16 04:45 Primary care physician: Manjeet Cid Attending physician on admission: Kimberly Livingston, Discharging clinician: Jodie Schrader NP Expected date of discharge: 12/14/16
[2016-12-14 16:33] VITALS: BP 183/77
== END 2016-12-14 17:20 | disposition home or self-care (01) | DRG 313 ==
LOC: EDUNIT# → EDBD → N.ED 02:05 → N.EDINP 04:45 → N.TELES 05:00
PROVIDERS: ADMIT Internal Medicine Cardiovascular Disease; ATTEND Internal Medicine Cardiovascular Disease

== ENCOUNTER 2018-10-23 23:29 | Observation (INO) ==
[2018-10-24 00:06] LABS: Basophils # 0.1 10*3/uL (0.0-0.2); Basophils % 0.4 % (0.0-0.8); Hemoglobin 10.9 GM/DL (12.0-16.0); Immature Granulocytes % 0.8 %; Immature Granulocytes Absolute 0.13 #; Lymphocytes # 1.4 10*3/uL (1.4-4.0); Lymphocytes % 8.6 % (21.3-54.2); Mean Corpuscular HGB Conc 32.1 GM/DL (32-36); Mean Corpuscular Hemoglobin 31 PG (27-34); Mean Corpuscular Volume 95.2 FL (87-102); Mean Platelet Volume 9.9 FL (9.6-12.0); Monocytes # 1.7 10*3/uL (0.11-0.8); Neutrophils # 13.4 10*3/uL (1.4-7.4); Neutrophils % 80.2 % (38.7-73.9); Platelet Count 307 T/CUMM (130-400); Red Blood Count 3.57 MC/CUMM (3.8-5.5); Red Cell Distribution Width 15.6 % (9.3-17.3); White Blood Count 16.7 T/CUMM (4-12)
[2018-10-24] MEDS ORDERED: KETOROLAC 30 MG/1 ML VIAL IV STA (00:33)
[2018-10-24] MEDS ORDERED: ONDANSETRON 4 MG/2 ML VIAL IV PRN (01:29)
[2018-10-24] MEDS ORDERED: ACETAMINOPHEN 325 MG TABLET PO PRN (01:29)
[2018-10-24] MEDS ORDERED: predniSONE 20 MG TABLET ONE (01:32)
[2018-10-24 01:41] LABS: Albumin 2.6 G/DL (3.4-5.0); Bilirubin,Total 0.7 MG/DL (0.2-1.0); Calcium 8.3 MG/DL (8.5-10.1); Osmolality,Calculated 285.4 MOS/KG (273-304); Potassium 3.9 MMOL/L (3.5-5.1)
[2018-10-24] MEDS ORDERED: predniSONE 20 MG TABLET PO STA (01:42)
[2018-10-24 01:49] LABS: Apearance,Urine CLOUDY (Clear); Bilirubin,Urine Negative (Negative); Blood, Urine Small mg/dL (Negative); Glucose,Urine (UA) Negative (Negative); Ketones,Urine Negative (Negative); Mucus,Urine Occasional /LPF (Occasional); Nitrite,Urine Negative (Negative); Protein,Urine 30 MG/DL; RBC,Urine 21 /HPF (0-4); Squamous Epithelial Cell,Urine Occasional /HPF (0-10); Urine Color Yellow (Yellow); Urine Specific Gravity 1.017 (1.001-1.035); Urine Urobilinogen < 2.0 EU/DL (0.2-1.0); WBC,Urine 2 /HPF (0-6)
[2018-10-24] MEDS ORDERED: HYDROmorphone 2 MG/1 ML VIAL IV PRN (01:51)
[2018-10-24] MEDS: CLINDAMYCIN INJ 600 MG in PREMIX 1 EACH IV SCH ×4 (03:22→18:13)
[2018-10-24] MEDS: SODIUM CHLORIDE 0.9% 1,000 ML IV SCH ×3 (03:22→21:34)
[2018-10-24 07:06] LABS: Basophils % 0.2 % (0.0-0.8); Hematocrit 37.5 VOL% (35.7-47.0); Hemoglobin 11.8 GM/DL (12.0-16.0); Immature Granulocytes % 0.9 %; Immature Granulocytes Absolute 0.15 #; Lymphocytes # 0.6 10*3/uL (1.4-4.0); Lymphocytes % 3.4 % (21.3-54.2); Mean Corpuscular HGB Conc 31.5 GM/DL (32-36); Mean Corpuscular Hemoglobin 30 PG (27-34); Mean Corpuscular Volume 95.9 FL (87-102); Mean Platelet Volume 9.7 FL (9.6-12.0); Monocytes % 5.8 % (1.7-12.7); Neutrophils # 14.8 10*3/uL (1.4-7.4); Neutrophils % 89.7 % (38.7-73.9); Platelet Count 324 T/CUMM (130-400); Red Blood Count 3.91 MC/CUMM (3.8-5.5); Red Cell Distribution Width 15.5 % (9.3-17.3); White Blood Count 16.5 T/CUMM (4-12)
[2018-10-24 07:25] LABS: Band Neutrophils 8 % (0-10); Lymphocytes 4 % (20-55); Platelet Estimate Normal; Segmented Neutrophils 84 % (50-85); Total Cells Counted 100
[2018-10-24 07:26] LABS: Anisocytosis 1+
[2018-10-24 07:38] LABS: Calcium 8.5 MG/DL (8.5-10.1); Osmolality,Calculated 288.4 MOS/KG (273-304); Potassium 4.1 MMOL/L (3.5-5.1)
[2018-10-24] MEDS: predniSONE 20 MG TABLET PO SCH (08:50)
[2018-10-24] MEDS ORDERED: PNEUMOCOCCAL VACCINE (13 VALENT) 0.5 ML SYRINGE IM ONE (09:00)
[2018-10-24] MEDS ORDERED: INFLUENZA VIRUS VACCINE 0.5 ML SYRINGE IM ONE (09:00)
[2018-10-24] MEDS: COLCHICINE 0.6 MG TABLET PO SCH ×2 (10:22→21:34)
[2018-10-25] MEDS: CLINDAMYCIN INJ 600 MG in PREMIX 1 EACH IV SCH ×5 (02:58→18:46)
[2018-10-25 05:02] LABS: Basophils % 0.1 % (0.0-0.8); Hematocrit 32.5 VOL% (35.7-47.0); Hemoglobin 10.1 GM/DL (12.0-16.0); Lymphocytes # 1.4 10*3/uL (1.4-4.0); Mean Corpuscular HGB Conc 31.1 GM/DL (32-36); Mean Corpuscular Hemoglobin 30 PG (27-34); Mean Corpuscular Volume 95.9 FL (87-102); Monocytes # 1.4 10*3/uL (0.11-0.8); Monocytes % 7.1 % (1.7-12.7); Neutrophils # 16.7 10*3/uL (1.4-7.4); Neutrophils % 84.8 % (38.7-73.9); Platelet Count 355 T/CUMM (130-400); Red Blood Count 3.39 MC/CUMM (3.8-5.5); Red Cell Distribution Width 15.1 % (9.3-17.3); White Blood Count 19.7 T/CUMM (4-12)
[2018-10-25 05:33] LABS: Osmolality,Calculated 305.8 MOS/KG (273-304); Potassium 3.9 MMOL/L (3.5-5.1)
[2018-10-25] MEDS: COLCHICINE 0.6 MG TABLET PO SCH ×2 (08:52→21:01)
[2018-10-25] MEDS: predniSONE 20 MG TABLET PO SCH (08:52)
[2018-10-25] MEDS ORDERED: FUROSEMIDE 40 MG/4 ML VIAL IV ONE (10:36)
[2018-10-25] MEDS: FEBUXOSTAT 80 MG TABLET PO SCH (13:55)
[2018-10-25] MEDS: METOPROLOL TARTRATE 25 MG TABLET PO SCH ×2 (14:24→21:01)
[2018-10-25] MEDS: SODIUM CHLORIDE 0.9% 1,000 ML IV SCH (14:42)
[2018-10-26] MEDS: CLINDAMYCIN INJ 600 MG in PREMIX 1 EACH IV SCH (02:52)
[2018-10-26 06:43] LABS: Basophils % 0.2 % (0.0-0.8); Hematocrit 33.3 VOL% (35.7-47.0); Hemoglobin 10.4 GM/DL (12.0-16.0); Immature Granulocytes % 0.6 %; Immature Granulocytes Absolute 0.08 #; Lymphocytes # 2.4 10*3/uL (1.4-4.0); Lymphocytes % 16.6 % (21.3-54.2); Mean Corpuscular HGB Conc 31.2 GM/DL (32-36); Mean Corpuscular Hemoglobin 30 PG (27-34); Mean Corpuscular Volume 95.1 FL (87-102); Mean Platelet Volume 10.2 FL (9.6-12.0); Monocytes # 1.1 10*3/uL (0.11-0.8); Monocytes % 7.4 % (1.7-12.7); Neutrophils # 10.8 10*3/uL (1.4-7.4); Neutrophils % 75.2 % (38.7-73.9); Platelet Count 450 T/CUMM (130-400); Red Cell Distribution Width 15.3 % (9.3-17.3); White Blood Count 14.4 T/CUMM (4-12)
[2018-10-26 06:54] LABS: Calcium 7.7 MG/DL (8.5-10.1); Osmolality,Calculated 302.8 MOS/KG (273-304); Potassium 3.7 MMOL/L (3.5-5.1)
[2018-10-26 08:02] VITALS: BP 142/89
[2018-10-26] MEDS: METOPROLOL TARTRATE 25 MG TABLET PO SCH (09:25)
[2018-10-26] MEDS: COLCHICINE 0.6 MG TABLET PO SCH (09:25)
[2018-10-26] MEDS: FEBUXOSTAT 80 MG TABLET PO SCH (09:25)
[2018-10-26] MEDS: predniSONE 20 MG TABLET PO SCH (09:25)
== END 2018-10-26 10:47 | disposition home or self-care (01) ==
LOC: EDBD → EDUNIT# → N.EDINP 23:29 → N.ED 23:29 → N.5E 10-24 01:50
PROVIDERS: ADMIT Internal Medicine; ATTEND Internal Medicine